=== PATIENT | female | born 1985 | race Two or more races ===

== ENCOUNTER 2016-11-14 16:11 | Emergency (ER) | payer MEDICAID ==
[~2016-11-14] VITALS: Ht 157.5 cm; Wt 146.6 kg
[~2016-11-14 16:11] MED LIST: OXYC500S PO
[2016-11-14 16:16] VITALS: BP 121/85
== END 2016-11-14 17:05 | disposition home or self-care (01) ==
LOC: ED 17:00
DX: B34.9 Viral infection, unspecified (principal)
CPT/HCPCS: 99283

== ENCOUNTER 2019-05-24 16:27 | Outpatient (CLI) | payer MEDICAID ==
[~2019-05-24] VITALS: Ht 157.5 cm; Wt 155.0 kg
[2019-05-24 17:14] LABS: MICROSCOPIC INDICATED
[2019-05-24 17:28] LABS: BASOPHILS % (AUTO) 0 % (0-1); EOSINOPHILS # (AUTO) 0.01 x10^3/uL (0-0.4); EOSINOPHILS % (AUTO) 0 % (1-7); LYMPHOCYTES # (AUTO) 0.96 x10^3/uL (1-3.4); LYMPHOCYTES % (AUTO) 10 % (22-44); MD NO; MEAN CORPUSCULAR HGB CONC 32.8 g/dL (32.4-35.8); MEAN CORPUSCULAR VOLUME 88.2 fL (80-100); MONOCYTES # (AUTO) 0.48 x10^3/uL (0.2-0.8); MONOCYTES % (AUTO) 5 % (2-9); NEUTROPHILS # (AUTO) 8.34 x10^3/uL (1.8-6.8); NEUTROPHILS % (AUTO) 85 % (42-75); PLATELET COUNT 244 x10^3/uL (130-400); RED BLOOD COUNT 3.78 x10^6/uL (3.82-5.3); RED CELL DISTRIBUTION WIDTH 13.3 % (9.6-15.2)
[2019-05-24 17:39] LABS: ALANINE AMINOTRANSFERASE 8 U/L (12-78); ALBUMIN 2.3 g/dL (3.4-5.0); ANION GAP 6 mmol/L (5-15); CALCIUM 8.5 mg/dL (8.5-10.1); CHLORIDE 107 mmol/L (98-107); CREATININE 0.53 mg/dL (0.55-1.02)
[2019-05-24 17:41] LABS: ALKALINE PHOSPHATASE 121 U/L (45-117); BILIRUBIN,TOTAL 0.3 mg/dL (0.2-1.0); TOTAL PROTEIN 6.7 g/dL (6.4-8.2)
== END 2019-05-24 17:50 | disposition home or self-care (01) ==
LOC: LDOP 16:27
PROVIDERS: ATTEND Obstetrics & Gynecology
DX: Z34.83 Encounter for supervision of other normal pregnancy, third trimester (principal); Z3A.36 36 weeks gestation of pregnancy
CPT/HCPCS: 36415; 59025; 80053; 81001; 82570; 84156; 84550; 85025; 87077; 87086; 99201; G0463

== ENCOUNTER 2019-06-12 10:15 | Inpatient (IN) | payer MEDICAID ==
[~2019-06-12] VITALS: Ht 157.5 cm; Wt 158.0 kg
[2019-06-12] MEDS ORDERED: LACTATED RINGERS 1,000 ML IV SCH (10:18)
[2019-06-12] MEDS ORDERED: NEWBORN KIT ONE (10:22)
[2019-06-12] MEDS ORDERED: SODIUM CITRATE/CITRIC ACID 30 ML UDC ONE (10:22)
[2019-06-12] MEDS ORDERED: METOCLOPRAMIDE 5 MG/ML, 2ML ONE (10:22)
[2019-06-12] MEDS ORDERED: OXYTOCIN 30U/ 0.9% NaCL 500ML 500 ML ONE (10:22)
[2019-06-12] MEDS ORDERED: SODIUM CITRATE/CITRIC ACID 30 ML UDC PO ONE (10:30)
[2019-06-12] MEDS ORDERED: METOCLOPRAMIDE 5 MG/ML, 2ML IV ONE (10:30)
[2019-06-12] MEDS ORDERED: LACTATED RINGERS 1,000 ML IVBOLUS ONE (10:30)
[2019-06-12 10:39] VITALS: BP 142/84
[2019-06-12] MEDS ORDERED: PREN-3 PO (11:02)
[2019-06-12 11:03] LABS: BASOPHILS # (AUTO) 0.02 x10^3/uL (0-0.1); BASOPHILS % (AUTO) 0 % (0-1); EOSINOPHILS % (AUTO) 0 % (1-7); LYMPHOCYTES # (AUTO) 0.92 x10^3/uL (1-3.4); LYMPHOCYTES % (AUTO) 11 % (22-44); MD NO; MEAN CORPUSCULAR HEMOGLOBIN 28.7 pg (27.0-34.8); MEAN CORPUSCULAR HGB CONC 32.6 g/dL (32.4-35.8); MEAN PLATELET VOLUME 8.5 fL (7.4-10.4); MONOCYTES # (AUTO) 0.38 x10^3/uL (0.2-0.8); MONOCYTES % (AUTO) 5 % (2-9); NEUTROPHILS # (AUTO) 6.99 x10^3/uL (1.8-6.8); NEUTROPHILS % (AUTO) 84 % (42-75); PLATELET COUNT 264 x10^3/uL (130-400); RED BLOOD COUNT 4.05 x10^6/uL (3.82-5.3); RED CELL DISTRIBUTION WIDTH 13.5 % (9.6-15.2)
[2019-06-12] MEDS ORDERED: FERR324T5 PO (11:03)
[2019-06-12] MEDS ORDERED: ONDANSETRON 2MG/ML, 2ML ONE (11:50)
[2019-06-12] MEDS ORDERED: EPHEDRINE 50 MG/ML, 1ML ONE (11:50)
[2019-06-12] MEDS ORDERED: KETOROLAC 30 MG/1 ML ONE (11:50)
[2019-06-12] MEDS ORDERED: CEFAZOLIN 1,000 MG ONE (11:50)
[2019-06-12] MEDS ORDERED: OXYTOCIN 10 UNITS/ML, 1ML ONE (11:50)
[2019-06-12] MEDS ORDERED: DEXAMETHASONE 4 MG/ML, 1ML ONE (11:50)
[2019-06-12] MEDS ORDERED: PHENYLEPHRINE 10 MG/ML ONE (11:50)
[2019-06-12] MEDS ORDERED: PROMETHAZINE 25 MG/ML, 1ML IV PRN (12:00)
[2019-06-12] MEDS ORDERED: FENTANYL PF 100 MCG/2ML IV PRN (12:00)
[2019-06-12] MEDS ORDERED: MEPERIDINE/PF 25MG/0.5ML IVPush PRN (12:00)
[2019-06-12] MEDS ORDERED: HYDROcodone/APAP 7.5-325MG/15ML UDC PO PRN (12:00)
[2019-06-12] MEDS ORDERED: METOPROLOL 1 MG/ML, 5ML IV PRN (12:00)
[2019-06-12] MEDS ORDERED: MIDAZOLAM 1 MG/ML, 2ML IV PRN (12:00)
[2019-06-12] MEDS ORDERED: ONDANSETRON 2MG/ML, 2ML IVPush PRN (12:00)
[2019-06-12] MEDS ORDERED: EPHEDRINE 50 MG/ML, 1ML IVPush PRN (12:00)
[2019-06-12] MEDS ORDERED: hydrALAzine 20 MG/ML, 1ML IV PRN (12:00)
[2019-06-12] MEDS ORDERED: ALBUTEROL SULFATE 2.5 MG/3 ML NPPB PRN (12:00)
[2019-06-12] MEDS ORDERED: OXYcodone 5 MG/5 ML ORAL.SOL UDC PO PRN (12:00)
[2019-06-12] MEDS ORDERED: HYDROmorphone 2 MG/ML, 1ML IVPush PRN (12:00)
[2019-06-12] MEDS ORDERED: LABETALOL 5MG/ML, 20ML IV PRN (12:00)
[2019-06-12] MEDS ORDERED: FENTANYL PF 100 MCG/2ML ONE (13:00)
[2019-06-12] MEDS: LACTATED RINGERS 1,000 ML IV SCH ×4 (13:19→23:19)
[2019-06-12] MEDS ORDERED: ACETAMINOPHEN 325 MG TABLET PO PRN (13:30)
[2019-06-12] MEDS ORDERED: SIMETHICONE 80 MG CHEW TAB PO PRN (13:30)
[2019-06-12] MEDS ORDERED: MISOPROSTOL 200 MCG TABLET PR PRN (13:30)
[2019-06-12] MEDS ORDERED: BISACODYL 10 MG SUPP PR PRN (13:30)
[2019-06-12] MEDS: KETOROLAC 30 MG/1 ML IV SCH ×2 (13:30→20:16)
[2019-06-12] MEDS ORDERED: ONDANSETRON 2MG/ML, 2ML IV PRN (13:30)
[2019-06-12] MEDS: OXYTOCIN 30U/ 0.9% NaCL 500ML 500 ML IV SCH ×2 (13:39→23:19)
[2019-06-12 15:30] VITALS: BP 130/80
[2019-06-12] MEDS: OXYcodone IR 5MG TABLET PO PRN (17:05)
[2019-06-12 20:49] LABS: BASOPHILS # (AUTO) 0.03 x10^3/uL (0-0.1); BASOPHILS % (AUTO) 0 % (0-1); EOSINOPHILS % (AUTO) 0 % (1-7); LYMPHOCYTES % (AUTO) 7 % (22-44); MD NO; MEAN CORPUSCULAR HEMOGLOBIN 28.8 pg (27.0-34.8); MEAN CORPUSCULAR HGB CONC 32.7 g/dL (32.4-35.8); MEAN CORPUSCULAR VOLUME 87.9 fL (80-100); MEAN PLATELET VOLUME 8.4 fL (7.4-10.4); MONOCYTES # (AUTO) 0.36 x10^3/uL (0.2-0.8); MONOCYTES % (AUTO) 3 % (2-9); NEUTROPHILS # (AUTO) 10.05 x10^3/uL (1.8-6.8); NEUTROPHILS % (AUTO) 89 % (42-75); PLATELET COUNT 216 x10^3/uL (130-400); RED BLOOD COUNT 3.37 x10^6/uL (3.82-5.3); RED CELL DISTRIBUTION WIDTH 13.1 % (9.6-15.2)
[2019-06-12 21:30] VITALS: BP 127/73
[2019-06-12 23:57] VITALS: BP 121/75
[2019-06-13] MEDS: OXYcodone IR 5MG TABLET PO PRN ×4 (01:13→19:38)
[2019-06-13] MEDS: KETOROLAC 30 MG/1 ML IV SCH ×4 (01:30→19:38)
[2019-06-13 04:00] VITALS: BP 119/77
[2019-06-13] MEDS: LACTATED RINGERS 1,000 ML IV SCH (05:14)
[2019-06-13 07:43] VITALS: BP 90/54
[2019-06-13] MEDS: PRENATAL VIT/IRON/FA 1 EACH TABLET PO SCH (08:05)
[2019-06-13] MEDS: DOCUSATE 100 MG CAPSULE PO PRN ×2 (08:05→19:38)
[2019-06-13 13:30] VITALS: BP 94/55
[2019-06-13 19:20] VITALS: BP 134/86
[2019-06-14] MEDS: OXYcodone IR 5MG TABLET PO PRN ×3 (01:42→13:38)
[2019-06-14] MEDS: KETOROLAC 30 MG/1 ML IV SCH ×2 (01:42→08:07)
[2019-06-14] MEDS: PRENATAL VIT/IRON/FA 1 EACH TABLET PO SCH (08:07)
[2019-06-14] MEDS: DOCUSATE 100 MG CAPSULE PO PRN (08:07)
[2019-06-14 08:15] VITALS: BP 132/73
[2019-06-14] MEDS ORDERED: OXYC-302 PO (12:20)
== END 2019-06-14 13:40 | disposition home or self-care (01) | DRG 785 ==
LOC: LDIP 10:15 → 2NW 15:28
PROVIDERS: ADMIT Obstetrics & Gynecology; ATTEND Obstetrics & Gynecology
PROC: 10D00Z1 Extraction of Products of Conception, Low, Open Approach (ICD-10-PCS; principal; 2019-06-12)
PROC: 0UB70ZZ Excision of Bilateral Fallopian Tubes, Open Approach (ICD-10-PCS; 2019-06-12)
DX: O34.211 Maternal care for low transverse scar from previous cesarean delivery (principal); O36.5930 Maternal care for other known or suspected poor fetal growth, third trimester, not applicable or unspecified; D64.9 Anemia, unspecified; E66.01 Morbid (severe) obesity due to excess calories; O99.02 Anemia complicating childbirth; O99.214 Obesity complicating childbirth; O99.844 Bariatric surgery status complicating childbirth; Z37.0 Single live birth; Z3A.39 39 weeks gestation of pregnancy; Z82.49 Family history of ischemic heart disease and other diseases of the circulatory system; Z83.3 Family history of diabetes mellitus
CPT/HCPCS: 36415; 85025; 86592; 86850; 86900; 88302; G0378; J0690; J1100; J1885; J2405; J3010; J2370; J2590; J2765; J7120